=== PATIENT | male | born 1995 | race Two or more races ===

== ENCOUNTER 2018-08-20 16:52 | Emergency (ER) | payer SELFPAY ==
[~2018-08-20] VITALS: Ht 170.2 cm; Wt 74.8 kg
--- NOTE | 2018-08-20 17:22 | Emergency Room Report ---
History of Present Illness General Chief Complaint: Lower Extremity Injury Source: Patient Present Illness HPI 22-year-old male with no significant past medical history here complaining of pain in her right foot after playing soccer 2 days ago. Patient reports that he broke the same foot a year ago, x-rays done, never splinted nor casted. Vision is rating the pain 10 out of 10 without radiation, localized to the right lateral malleolus and posterior heel. Any medication for pain. Tingling and numbness. Denies any tightness in calf, all other injuries, chest pain, S OB, palpitation, and all other associated symptoms Allergies: Coded Allergies: No Known Allergies (Unverified , 08/20/18) Patient History Past Medical History: see triage record Past Surgical History: unable to obtain Pertinent Family History: none Reviewed Nursing Documentation: PMH: Agreed; PSxH: Agreed Nursing Documentation-PMH Past Medical History: No Stated History Review of Systems All Other Systems: negative except mentioned in HPI Physical Exam Vital Signs Date Time Temp Pulse Resp B/P (MAP) Pulse Ox O2 Delivery O2 Flow Rate FiO2 08/20/18 16:56 98.1 84 18 97 Room Air Sp02 EP Interpretation: reviewed, normal General Appearance: normal inspection, well appearing, no apparent distress Head: normocephalic, atraumatic Eyes: bilateral eye normal inspection, bilateral eye PERRL ENT: normal ENT inspection, normal pharynx Neck: normal inspection, full range of motion, supple Respiratory: normal inspection, lungs clear, no rhonchi, no wheezing Cardiovascular #1: normal inspection, normal peripheral pulses, regular rate, rhythm, no murmur Cardiovascular #2: 2+ dorsalis pedis (R), 2+ dorsalis pedis (L) Gastrointestinal: normal inspection, non tender, soft Genitourinary: no CVA tenderness Musculoskeletal: back normal, normal range of motion, swelling - right lateral foot Neurologic: normal inspection, alert, oriented x3 Psychiatric: normal inspection, judgement/insight normal Skin: normal inspection, warm/dry Lymphatic: normal inspection, no adenopathy Medical Decision Making PA Attestation All my diagnosis and treatment plans were reviewed ad discussed with my supervising physician Dr. Saravia Diagnostic Impression: Primary Impression: Right foot sprain ER Course 22-year-old male with no significant past medical history here complaining of pain in her right foot after playing soccer 2 days ago. Patient reports that he broke the same foot a year ago, x-rays done, never splinted nor casted. Vision is rating the pain 10 out of 10 without radiation, localized to the right lateral malleolus and posterior heel. Any medication for pain. Tingling and numbness. Denies any tightness in calf, all other injuries, chest pain, S OB, palpitation, and all other associated symptoms Ddx considered but are not limited to: ankle sprain, ankle strain, ankle fracture, ankle contusion , foot fx, foot sprain, Vital signs: are WNL, pt. is afebrile H&PE are most consistent with: foot sprain ORDERS: right foot Xray, naproxen ED INTERVENTIONS: None required at this time. DISCHARGE: At this time pt. is stable for d/c to home. Will provide printed patient care instructions, and any necessary prescriptions. Care plan and follow up instructions have been discussed with the patient prior to discharge. RICE guidelines given to pt. follow-up with a primary care provider for further evaluation of your foot symptoms continue or if any tingling or numbness MRI of foot may be needed Other X-Ray Diagnostic Results Other X-Ray Diagnostic Results : X-Ray ordered: right foot # of Views/Limited Vs Complete: 3 View Indication: Pain EP Interpretation: Yes JESÚS Xray: Interpretation reviewed, by supervising MD, and agrees with findings. Interpretation: no dislocation, no soft tissue swelling, no fractures Impression: No acute disease Electronically Signed by: gila dickinson PA-C Last Vital Signs Date Time Temp Pulse Resp B/P (MAP) Pulse Ox O2 Delivery O2 Flow Rate FiO2 08/20/18 16:56 98.1 84 18 97 Room Air Disposition: HOME, SELF-CARE Condition: Stable Scripts Naproxen* (NAPROXEN*) 500 Mg Tablet 500 MG ORAL TWICE A DAY, #20 TAB Prov: Gila Mathias 08/20/18 Referrals: NOT CHOSEN IPA/,REFERRING (PCP) Patient Instructions: Foot Sprain Additional Instructions: Avoid strenuous physical activity, alternate between icing and heating the affected area, elevate lower extremity. Although with a primary care provider for further assessment further imaging may be needed. Gila Mathias August 20, 2018 17:22
[2018-08-20] MEDS ORDERED: NAPROXEN500 M2 ORAL (17:40)
[2018-08-20 17:47] VITALS: BP 111/68
--- NOTE | 2018-08-20 17:48 | NUR ---
ER DISCHARGE NOTE: Patient is cleared to be discharged per ERMD, pt is aox4, on room air, with stable vital signs. pt was given dc and prescription instructions, pt was able to verbalize understanding, pt is able to ambulate with steady gait. pt took all belongings.
--- NOTE | 2018-08-21 12:23 | Diagnostic Imaging Report ---
Indication: Foot Pain Comparison: None Findings: 3 views of the right foot were obtained. No acute fractures, malalignment, erosions or periostitis are identified. Soft tissues are unremarkable. Impression: No acute findings.
== END 2018-08-20 17:50 | disposition home or self-care (01) ==
LOC: EMR 17:03
DX: S93.601A Unspecified sprain of right foot, initial encounter (principal); Y93.66 Activity, soccer; Y92.9 Unspecified place or not applicable
CPT/HCPCS: 99283